=== PATIENT | male | born 1960 ===

== ENCOUNTER 2020-09-14 19:01 | Inpatient (IN) | payer OTHER ==
[~2020-09-14] VITALS: Ht 165.1 cm; Wt 68.3 kg
--- NOTE | 2020-09-14 19:28 | NUR ---
pt bib remsa to room 16. shivering and c/o being to cold
[2020-09-14] MEDS ORDERED: PLEASE ENTER ALLERGIES MC SCH (19:30)
[2020-09-14] MEDS ORDERED: PLEASE ENTER HEIGHT AND WEIGHT MC SCH (19:30)
[2020-09-14] MEDS ORDERED: SODIUM CHLORIDE FLUSH 10ML SYR IVF ONE (19:30)
[2020-09-14] MEDS ORDERED: DEXTROSE 50%, 50ML SYRINGE IVPush ONE (19:30)
[2020-09-14] MEDS ORDERED: SODIUM CHLORIDE 0.9% 1,000ML IVBOLUS ONE ×2 (19:30→20:30)
--- NOTE | 2020-09-14 19:32 | NUR ---
per davin, [place] sh[place] and unable to warm himself. brought in for observation, fsbs in the field was 45. took oral glucose. pt awake and alert. on monitor, and warm blankets placed. lab in to draw blood.
[2020-09-14 19:42] LABS: MEAN CORPUSCULAR HEMOGLOBIN 34.4 pg (27.5-34.5); MEAN CORPUSCULAR HGB CONC 31.7 g/dL (33.2-36.2); MEAN PLATELET VOLUME 9.7 fL (7.4-10.4); PLATELET COUNT 141 x10^3/uL (130-400); RED BLOOD COUNT 4.57 x10^6/uL (4.38-5.82); RED CELL DISTRIBUTION WIDTH 16.7 % (9.4-14.8)
--- NOTE | 2020-09-14 19:48 | NUR ---
pt refusing rectal temp check. unable to obtain temp from oral temp check. pt still shivering. covered in warm blankets and bear hugger attached to bed and blowing warm air under blankets.
[2020-09-14 19:53] LABS: ALANINE AMINOTRANSFERASE 71 U/L (12-78); ALBUMIN 3.4 g/dL (3.4-5.0); ANION GAP 42 mmol/L (5-15); CHLORIDE 89 mmol/L (98-107); CREATININE 4.24 mg/dL (0.7-1.3)
[2020-09-14 20:01] LABS: ALKALINE PHOSPHATASE 174 U/L (45-117); BILIRUBIN,TOTAL 1.1 mg/dL (0.2-1.0); TOTAL PROTEIN 8.1 g/dL (6.4-8.2)
[2020-09-14 20:02] LABS: MD YES
[2020-09-14 20:05] LABS: BANDS%(MANUAL) 24 % (0-7); LYMPH#(MANUAL) 1.43 x10^3/uL (1-3.4); LYMPHS% (MANUAL) 7 % (22-44); METAMYELOCYTES# (MANUAL) 1.02 x10^3/uL (0-0); METAMYELOCYTES% (MANUAL) 5 % (0-1); MONOS#(MANUAL) 0.82 x10^3/uL (0.3-2.7); MONOS% (MANUAL) 4 % (2-9); REACTIVE LYMPHS % (MANUAL) 1 % (0-0); SEG#(MANUAL) 12.04 x10^3/uL (1.8-6.8); SEGS% (MANUAL) 59 % (42-75)
[2020-09-14 20:06] LABS: ANISOCYTOSIS 1+
[2020-09-14 20:07] LABS: PMNS WITH VACUOLES 1+
[2020-09-14 20:08] LABS: <PLATELET ESTIMATE> ADEQUATE; <PLT MORPHOLOGY> NORMAL PLT MORPH
[2020-09-14] MEDS ORDERED: ONDANSETRON 2MG/ML, 2ML IVPush ONE (20:30)
--- NOTE | 2020-09-14 21:09 | NUR ---
pt oral temp 92 F, advised. BP low. 86/43. aware. 1 liter NS running in wide open. to get 2 liters.
[2020-09-14] MEDS ORDERED: SODIUM BICARB 8.4%, 50ML SYRINGE ONE (21:24)
--- NOTE | 2020-09-14 21:28 | NUR ---
pt actively being warmed. bear hugger on pt. pt more awake and alert, and talkative. states he is feeling better. [id number] given iv per emar.
[2020-09-14] MEDS ORDERED: SODIUM BICARB 8.4%, 50ML SYRINGE IVPush ONE (21:30)
[2020-09-14] MEDS ORDERED: PIPERACILLIN/TAZO/PMX 3.375GM 50 ML ONE (21:50)
[2020-09-14] MEDS ORDERED: PIPERACILLIN/TAZO/PMX 3.375GM 50 ML IV ONE (22:00)
--- NOTE | 2020-09-14 22:37 | NUR ---
hospitalist in to room to assess pt for admission.
[2020-09-14] MEDS: SODIUM BICARBONATE 8.4% 100 MEQ in SODIUM CHLORIDE 0.45% 1,000 ML IV SCH (23:00)
[2020-09-14] MEDS ORDERED: POLYETHYLENE GLYCOL 17 GM PACKET PO PRN (23:00)
[2020-09-14] MEDS ORDERED: VANCOMYCIN PER PHARMACY MC PRN (23:00)
[2020-09-14] MEDS ORDERED: ONDANSETRON ODT 4 MG PO PRN (23:00)
[2020-09-14] MEDS ORDERED: BISACODYL 10 MG SUPP PR PRN (23:00)
[2020-09-14 23:11] LABS: MICROSCOPIC INDICATED
--- NOTE | 2020-09-14 23:14 | NUR ---
pt up to commode, general weakness, and assisted. call light within reach. pt had stool x1. pt assisted back in bed, back on cr monitor, and call light within reach. oriented to movement and to not get out of bed without calling for assistance. he verbalized understanding.
[2020-09-14 23:25] LABS: TROPONIN I 0.254 ng/mL (0.000-0.045)
--- NOTE | 2020-09-14 23:52 | NUR ---
pt had emesis again. brown bilious fluids. moderate amount.
--- NOTE | 2020-09-15 00:07 | NUR ---
pt up to commode again. steady gait. weakness noted and assisted. call light within reach.
--- NOTE | 2020-09-15 00:22 | NUR ---
pt back in bed. on cr monitor. calm and comfortable. warmer on under blankets.
[2020-09-15] MEDS ORDERED: ONDANSETRON ODT 4 MG ONE (00:47)
[2020-09-15] MEDS ORDERED: PHARMACOKINETIC MONITORING MC PRN (02:30)
--- NOTE | 2020-09-15 02:37 | NUR ---
pt awake. continous with emesis. brown bilious looking fluid. MD made aware. pt has had zofran. call light within reach, side rails x2.
--- NOTE | 2020-09-15 02:53 | NUR ---
pt with emesis again. hospitalist paged for further instructions on meds.
[2020-09-15] MEDS ORDERED: ONDANSETRON 2MG/ML, 2ML ONE (02:57)
--- NOTE | 2020-09-15 03:36 | NUR ---
pt weighed for accurate weight on standing scale. back in bed, on cr monitor. ivf started per EMAR order, from at 125ml/hr.
[2020-09-15] MEDS ORDERED: VANCOMYCIN PMX 1GM/200ML 200 ML IV ONE (04:00)
--- NOTE | 2020-09-15 04:04 | NUR ---
Vancomycin started to run over 1 hour. 200 ml/hr. pt monitored for any adverse reaction.
--- NOTE | 2020-09-15 04:22 | NUR ---
pt assisted up to commode. urinated only. back in bed, on cr monitor, side rails up x2, oriented to room, and call light within reach. pt continues with wretching and emesis at times.
[2020-09-15] MEDS ORDERED: PIPERACILLIN/TAZO/PMX 3.375GM 50 ML ONE ×2 (04:48→13:31)
[2020-09-15] MEDS ORDERED: HEPARIN 5,000 UNITS/ML, 1ML ONE (04:48)
[2020-09-15] MEDS: HEPARIN 5,000 UNITS/ML, 1ML SQ SCH ×4 (05:00→23:23)
[2020-09-15] MEDS: MULTIVITAMINS/MINERALS TABLET PO SCH ×3 (05:01→20:03)
[2020-09-15] MEDS: PIPERACILLIN/TAZO/PMX 3.375GM 50 ML IV SCH ×5 (05:01→23:23)
--- NOTE | 2020-09-15 05:01 | NUR ---
pt with emesis again. in bed, on cr monitor.
[2020-09-15 05:36] LABS: CALCIUM 6.6 mg/dL (8.5-10.1); CHLORIDE 99 mmol/L (98-107)
[2020-09-15 05:53] LABS: ALANINE AMINOTRANSFERASE 66 U/L (12-78); ALBUMIN 2.8 g/dL (3.4-5.0); ALKALINE PHOSPHATASE 78 U/L (45-117); ANION GAP 16 mmol/L (5-15); BILIRUBIN,TOTAL 2.2 mg/dL (0.2-1.0); CREATINE KINASE, TOTAL 3976 U/L (39-308); CREATININE 2.75 mg/dL (0.7-1.3); TOTAL PROTEIN 6.3 g/dL (6.4-8.2)
--- NOTE | 2020-09-15 06:41 | NUR ---
Dr. Duncan called and alerted to pts troponin level increase and critical value. He will send the hospitalist attending in charge of the pt to evaluate. pt on cr monitor. continues with emesis sporadically, brown bilious liquid. pt in bed, side rails up x2, piv intact x2 and flushes easy. ivf flowing on iv pump. see emar.
[2020-09-15 06:47] LABS: MEAN CORPUSCULAR HEMOGLOBIN 34.5 pg (27.5-34.5); MEAN CORPUSCULAR HGB CONC 33.7 g/dL (33.2-36.2); MEAN PLATELET VOLUME 9.8 fL (7.4-10.4); PLATELET COUNT 76 x10^3/uL (130-400); RED BLOOD COUNT 3.89 x10^6/uL (4.38-5.82); RED CELL DISTRIBUTION WIDTH 15.3 % (9.4-14.8)
--- NOTE | 2020-09-15 06:59 | NUR ---
report and care given to dayshift RN
[2020-09-15 07:33] LABS: MD YES
[2020-09-15 07:34] LABS: BAND#(MANUAL) 3.27 x10^3/uL; BANDS%(MANUAL) 27 % (0-7); LYMPH#(MANUAL) 1.45 x10^3/uL (1-3.4); LYMPHS% (MANUAL) 12 % (22-44); METAMYELOCYTES# (MANUAL) 0.97 x10^3/uL (0-0); METAMYELOCYTES% (MANUAL) 8 % (0-1); MONOS#(MANUAL) 0.36 x10^3/uL (0.3-2.7); MONOS% (MANUAL) 3 % (2-9); SEG#(MANUAL) 6.05 x10^3/uL (1.8-6.8); SEGS% (MANUAL) 50 % (42-75)
[2020-09-15 07:35] LABS: <PLATELET ESTIMATE> DECREASED; <PLT MORPHOLOGY> NORMAL PLT MORPH; <RBC MORPHOLOGY> NORMAL
--- NOTE | 2020-09-15 08:01 | NUR ---
PT RESTING IN BED. IS COUGHING OCCATIONALLY. NO STATED NEEDS AT THIS TIME. WILL CONTINUE TO MONITOR.
[2020-09-15] MEDS ORDERED: SENNA/DOCUSATE TABLET PO SCH (09:00)
--- NOTE | 2020-09-15 09:25 | NUR ---
PT REFUSED ECHO. WILL INFORM HOSPITALIST
--- NOTE | 2020-09-15 09:27 | NUR ---
ERP AWARE PT REFUSED ECHO
[2020-09-15] MEDS ORDERED: SENNA/DOCUSATE TABLET ONE (09:48)
[2020-09-15] MEDS: SODIUM BICARBONATE 8.4% 100 MEQ in SODIUM CHLORIDE 0.45% 1,000 ML IV SCH ×2 (09:57→16:36)
--- NOTE | 2020-09-15 10:03 | NUR ---
20 GAUGE IN PT RIGHT WRIST HAS COME OUT. THIS IV REMOVED INTACT. PT HAS BEDSIDE COMMODE IN ROOM WHICH HE HAS BEEN ABLE TO GET TO WITHOUT ASSIST. PT TOOK ORAL MEDS WITHOUT ANY PROBLEM.
--- NOTE | 2020-09-15 11:41 | NUR ---
GRID CASTER IN ROOM NOW SPEAKING WITH PT.
--- NOTE | 2020-09-15 12:15 | NUR ---
PT HAS REMOVED REMAINING IV, STATED HE IS READY TO LEAVE. PT STATED THE DOCTOR OR NURSE TOLD HIM HE IS FINE AND CAN LEAVE. ERP IN ROOM TO TALK TO PT. PT INSISTING STILL HE IS FINE TO LEAVE. ABLE TO HAVE KYRGYZ SPEAKING EMPLOYEE SPEAK WITH PT AND TRANSLATE FROM ERP THAT PT IS SEVERELY ILL AND NEEDS TO STAY FOR TREATMENT. AFTER EXTENSIVE CONVERSATION, PT AGREED TO STAY. PT PLACED ON HOSPITAL BED. PT ROOM MOPPED FLOOR WAS COVERED IN DEBRI. PT GIVEN MEAL TRAY AND PLACED IN NEW GOWN. WILL CONTINUE TO MONITOR.
--- NOTE | 2020-09-15 13:22 | NUR ---
REPORT TO SERGIO MCCOY
[2020-09-15 14:24] VITALS: BP 127/61
[2020-09-15 18:56] VITALS: BP 141/71
[2020-09-15 23:34] VITALS: BP 113/57
[2020-09-16] MEDS: SODIUM BICARBONATE 8.4% 100 MEQ in SODIUM CHLORIDE 0.45% 1,000 ML IV SCH (02:23)
[2020-09-16 05:27] LABS: BASOPHILS % (AUTO) 0 % (0-1); EOSINOPHILS % (AUTO) 0 % (1-7); LYMPHOCYTES % (AUTO) 11 % (22-44); MEAN CORPUSCULAR HEMOGLOBIN 34.7 pg (27.5-34.5); MEAN CORPUSCULAR HGB CONC 34.4 g/dL (33.2-36.2); MEAN PLATELET VOLUME 10.3 fL (7.4-10.4); MONOCYTES % (AUTO) 5 % (2-9); NEUTROPHILS % (AUTO) 84 % (42-75); PLATELET COUNT 56 x10^3/uL (130-400); RED BLOOD COUNT 4.03 x10^6/uL (4.38-5.82); RED CELL DISTRIBUTION WIDTH 15.5 % (9.4-14.8)
[2020-09-16 05:30] LABS: MD NO
[2020-09-16 05:40] LABS: ANION GAP 7 mmol/L (5-15); CALCIUM 7.6 mg/dL (8.5-10.1); CHLORIDE 102 mmol/L (98-107)
[2020-09-16 05:43] LABS: VANCOMYCIN,TROUGH 2.6 mcg/mL (5.0-10.0)
[2020-09-16] MEDS: PIPERACILLIN/TAZO/PMX 3.375GM 50 ML IV SCH (05:55)
[2020-09-16 05:57] LABS: CREATINE KINASE, TOTAL 4698 U/L (39-308); CREATININE 1.54 mg/dL (0.7-1.3)
[2020-09-16] MEDS: HEPARIN 5,000 UNITS/ML, 1ML SQ SCH (07:30)
== END 2020-09-16 08:54 | disposition left against medical advice (07) | DRG 872 ==
LOC: ED 09-15 01:58 → EDIP 09-15 01:59 → 5SO 09-15 13:40
PROVIDERS: ADMIT Family Medicine; ATTEND Family Medicine
PROC: 0T9B70Z Drainage of Bladder with Drainage Device, Via Natural or Artificial Opening (ICD-10-PCS; principal; 2020-09-14)
DX: A41.9 Sepsis, unspecified organism (principal); E87.2 Acidosis; M62.82 Rhabdomyolysis; N17.9 Acute kidney failure, unspecified; N39.0 Urinary tract infection, site not specified; D75.89 Other specified diseases of blood and blood-forming organs; I48.91 Unspecified atrial fibrillation; Z59.0 Homelessness; R77.8 Other specified abnormalities of plasma proteins
CPT/HCPCS: 36415; 36600; 71045; 80053; 80069; 80202; 80320; 81001; 82550; 82570; 82607; 82803; 83605; 83735; 84145; 84443; 84484; 85025; 86022; 87040; 87086; 93005; 99285; G0378; J1644; J2405; J2543; J3370; Q0162; G0480; J7030